=== PATIENT | male | born 1990 | race Caucasian/White ===

== ENCOUNTER 2018-09-01 05:16 | Emergency (ER) | payer OTHER ==
--- NOTE | 2018-09-01 05:58 | ED ---
Chest Pain HPI - General Chief Complaint: Chest Pain Stated Complaint: Chest Pain Time Seen by Provider: 09/01/18 05:28 Source: patient, family, RN notes reviewed, old records reviewed Mode of arrival: ambulatory Limitations: no limitations - History of Present Illness Initial Comments: This is a 28-year-old male the ER for evaluation. Patient has a for evaluation regarding some chest pain left-sided chest pain shortness of breath and a near syncopal event. Patient states his heart rate went into the 40s. Does have. Prior history of vasovagal syncope secondary to needle trauma. Also once with bad news. Patient states he felt very anxious. Shaking his limbs in his hands. Denies any medications. Take an aspirin. Again patient's complaining of chest pain currently. He states he did get diaphoretic during the event and fell using pass out. Aside from the shaking he is currently back to baseline MD Complaint: chest pain, other (near syncope) -: hour(s) (1) Onset: during rest Pain Location: left chest Severity: mild Severity scale (1-10): 2 Quality: tightness Consistency: constant Improves With: nothing Worsens With: nothing Anginal Symptoms: diaphoresis, dyspnea Other Symptoms: palpitations Treatments Prior to Arrival: none - Related Data Home Medications Medication Instructions Recorded Confirmed No Known Home Medications 09/01/18 09/01/18 Allergies Allergy/AdvReac Type Severity Reaction Status Date / Time No Known Allergies Allergy Verified 09/01/18 07:00 Review of Systems ROS Statement: Those systems with pertinent positive or pertinent negative responses have been documented in the HPI. ROS Other: All systems not noted in ROS Statement are negative. EKG Findings - EKG Comments: EKG Findings:: EKG shows sinus rhythm rate of 70, ME 136, QRS 02, QTc 446 Past Medical History Past Medical History: No Reported History History of Any Multi-Drug Resistant Organisms: None Reported Past Surgical History: Hernia Repair Past Psychological History: No Psychological Hx Reported Smoking Status: Never smoker Past Alcohol Use History: Occasional Past Drug Use History: None Reported General Exam Limitations: no limitations General appearance: alert, in no apparent distress Head exam: Present: atraumatic, normocephalic, normal inspection Eye exam: Present: normal appearance, PERRL, EOMI. Absent: scleral icterus, conjunctival injection, periorbital swelling ENT exam: Present: normal exam, mucous membranes moist Neck exam: Present: normal inspection. Absent: tenderness, meningismus, lymphadenopathy Respiratory exam: Present: normal lung sounds bilaterally. Absent: respiratory distress, wheezes, rales, rhonchi, stridor Cardiovascular Exam: Present: regular rate, normal rhythm, normal heart sounds. Absent: systolic murmur, diastolic murmur, rubs, gallop, clicks GI/Abdominal exam: Present: soft, normal bowel sounds. Absent: distended, tenderness, guarding, rebound, rigid Extremities exam: Present: normal inspection, full ROM, normal capillary refill. Absent: tenderness, pedal edema, joint swelling, calf tenderness Back exam: Present: normal inspection Neurological exam: Present: alert, oriented X3, CN II-XII intact Psychiatric exam: Present: normal affect, normal mood Skin exam: Present: warm, dry, intact, normal color. Absent: rash Course Vital Signs 09/01/18 09/01/18 09/01/18 05:21 06:08 06:55 Temperature 98.3 F 97.7 F Pulse Rate 78 65 65 Respiratory 20 18 20 Rate Blood Pressure 136/80 121/74 121/76 O2 Sat by Pulse 99 98 97 Oximetry - Reevaluation(s) Reevaluation #1: Patient is without syncopal event here in the ER, asymptomatic or chest pain or shortness of breath Chest Pain MDM - MDM 20 male the ER for evaluation. Patient is today for evaluation of near syncopal event occasional chest pain. Patient's heart monitor is normal blood fluids are normal troponin and EKG are negative. Patient does have history of near syncope. He is mildly anxious on exam with some shaking. Those symptoms have improved and patient can be discharged home Disposition Clinical Impression: Chest pain, Near syncope Disposition: HOME SELF-CARE Condition: Good Instructions (If sedation given, give patient instructions): Chest Pain (ED) Is patient prescribed a controlled substance at d/c from ED?: No Referrals: None,Stated [Primary Care Provider] - 1-2 days
[2018-09-01] MEDS: SODIUM CHLORIDE 0.9% 1,000 ML IV STA ×2 (06:07→06:08)
[2018-09-01 06:09] VITALS: PULSE 65
[2018-09-01 06:16] LABS: Basophils % (A) 0 %; Eosinophils # (A) 0.2 k/uL (0-0.7); Eosinophils % (A) 3 %; HCT 44.4 % (39.0-53.0); HGB 15.4 gm/dL (13.0-17.5); Lymphocytes # (A) 2.4 k/uL (1.0-4.8); Lymphocytes % (A) 38 %; MCH 31.6 pg (25.0-35.0); MCHC 34.8 g/dL (31.0-37.0); MCV 90.9 fL (80.0-100.0); Mean Platelet Volume 6.1; Monocytes # (A) 0.4 k/uL (0-1.0); Monocytes % (A) 6 %; Neutrophils # (A) 3.2 k/uL (1.3-7.7); Neutrophils % (A) 51 %; Platelet Count 206 k/uL (150-450); RBC 4.88 m/uL (4.30-5.90); RDW 12.4 % (11.5-15.5); WBC 6.3 k/uL (3.8-10.6)
[2018-09-01 06:26] LABS: ALT 39 U/L (21-72); AST 25 U/L (17-59); Albumin 4.7 g/dL (3.5-5.0); Alkaline Phosphatase 48 U/L (38-126); Anion Gap 10 mmol/L; Blood Urea Nitrogen 22 mg/dL (9-20); Calcium 9.4 mg/dL (8.4-10.2); Carbon Dioxide 28 mmol/L (22-30); Chloride 103 mmol/L (98-107); Glucose 131 mg/dL (74-99); Lipase 110 U/L (23-300); Magnesium 1.9 mg/dL (1.6-2.3); Sodium 141 mmol/L (137-145); Total Bilirubin 1.1 mg/dL (0.2-1.3); Total Protein 7.5 g/dL (6.3-8.2)
[2018-09-01 06:32] LABS: Partial Thromboplastin Time 24.4 sec (22.0-30.0); Prothrombin Time 10.6 sec (9.0-12.0)
[2018-09-01 06:48] LABS: D-Dimer <0.17 mg/L FEU (<0.60)
--- NOTE | 2018-09-01 06:54 | XR ---
EXAM: XR Chest, 2 Views CLINICAL HISTORY: ITS.REASON XR Reason: Chest Pain TECHNIQUE: Frontal and lateral views of the chest. COMPARISON: No relevant prior studies available. FINDINGS: Lungs: Unremarkable. No consolidation. Pleural space: Unremarkable. No pneumothorax. Heart: Unremarkable. No cardiomegaly. Mediastinum: Unremarkable. Bones/joints: Unremarkable. IMPRESSION: No acute cardiopulmonary findings.
[2018-09-01 06:58] VITALS: BP 121/76; RESP 20; TEMP 97.7
== END 2018-09-01 07:18 | disposition home or self-care (01) ==
LOC: EC 05:16
DX: R07.89 Other chest pain (principal); R55 Syncope and collapse; R06.02 Shortness of breath; R61 Generalized hyperhidrosis; R45.0 Nervousness
CPT/HCPCS: 36415; 71046; 80053; 83690; 83735; 83880; 84484; 85025; 85379; 85610; 85730; 93005; 96360; 99285

== ENCOUNTER → 2019-04-19 | Outpatient (CLI) | payer OTHER ==
--- NOTE | 2019-04-19 09:26 | FL ---
EXAMINATION TYPE: FL barium swallow DATE OF EXAM: 04/19/2019 CLINICAL HISTORY: Gastroesophageal reflux. TECHNIQUE: A double contrast esophagram is performed utilizing air and barium. A total of 1.34 baldo osorio of fluoroscopic time was utilized during procedure. 33 fluoroscopic images were saved during the examination. COMPARISON: None FINDINGS: The esophagus shows normal motility and emptying into the stomach. No evidence of hiatal h ernia or stricture noted. Mild degree gastroesophageal reflux was seen during real time performance o f this study in the right lateral and left lateral decubitus positions without Valsalva. IMPRESSION: Mild degree gastroesophageal reflux in the right lateral and left lateral decubitus posi tions without Valsalva. No hiatal hernia or stricture.
== END | disposition home or self-care (01) ==
LOC: RADUSWWP 07:49
PROVIDERS: ATTEND Family Medicine
DX: K21.9 Gastro-esophageal reflux disease without esophagitis (principal)
CPT/HCPCS: 74220

== ENCOUNTER → 2019-06-13 | Outpatient (CLI) | payer OTHER ==
--- NOTE | 2019-06-13 07:38 | US ---
EXAMINATION TYPE: US gallbladder DATE OF EXAM: 06/13/2019 COMPARISON: NONE CLINICAL HISTORY: R94.8 Abnormal serum levels. Patient is 6ft 9in tall EXAM MEASUREMENTS: Liver Length: 18.5 cm Gallbladder Wall: 0.2 cm CBD: 0.3 cm Right Kidney: 13.0 x 4.4 x 4.3 cm Pancreas: Tail obscured by overlying bowel gas. Visualized portions wnl Liver: wnl Gallbladder: Elongated in size measuring 8.9 cm. No cholelithiasis or biliary sludge. Evidence for sonographic Henao's sign: No CBD: wnl as visualized, distal portion obscured by bowel gas Right Kidney: No hydronephrosis. Cystic area visualized mid pole measuring 1.2 x 1.3 x 1.5 cm IMPRESSION: No cholelithiasis or sonographic evidence of acute cholecystitis.
== END | disposition home or self-care (01) ==
LOC: RADUSWWP 06:55
PROVIDERS: ATTEND Family Medicine
DX: R74.8 Abnormal levels of other serum enzymes (principal)
CPT/HCPCS: 76705

== ENCOUNTER → 2021-03-30 | Outpatient (CLI) | payer OTHER ==
--- NOTE | 2021-03-30 13:02 | US ---
EXAMINATION TYPE: US duplex aorta DATE OF EXAM: 03/30/2021 COMPARISON: NONE CLINICAL HISTORY: Z82.49 Family history of ischemic heart disease. No HTN. Patient states his father hx AAA. EXAM MEASUREMENTS: Abdominal Aorta: Proximal: 1.8 x 2.1 cm Mid: 1.6 x 1.7 cm Distal: 1.5 x 1.5 cm Bifurcation: Right- 1.0 x 0.9 cm Left- 1.1 x 0.9 cm No AAA visualized. IMPRESSION: 1. Normal screening abdominal aorta. No aneurysmal dilatation is evident by ultrasound.
== END | disposition home or self-care (01) ==
LOC: RADUSWWP 08:13
PROVIDERS: ATTEND Family Medicine
DX: Z09 Encounter for follow-up examination after completed treatment for conditions other than malignant neoplasm (principal); Z82.49 Family history of ischemic heart disease and other diseases of the circulatory system
CPT/HCPCS: 93979

== ENCOUNTER → 2022-02-01 | Outpatient (CLI) | payer OTHER ==
--- NOTE | 2022-02-01 17:15 | US ---
EXAMINATION TYPE: US scrotum with doppler. TECHNIQUE: Grayscale and color Doppler Duplex imaging performed of the scrotum. DATE OF EXAM: 02/01/2022 COMPARISON: NONE CLINICAL HISTORY: 32-year-old male N50.812 Left testicular pain. Left teste pain x 2 weeks. No injur y. No swelling. FINDINGS: EXAM MEASUREMENTS: TESTICLES: Right Testicle: 5.0 x 3.9 x 3.1 cm Left Testicle: 5.3 x 3.5 x 3.5 cm EPIDIDYMIS HEAD: Right Epididymis: 1.2 x 1.0 x 1.0 cm Left Epididymis: 1.0 x 1.2 x 0.6 cm Doppler performed to assess for testicular vascularity; good bilateral color flow and waveforms are s een. There is no evidence of testicular torsion. Presence of hydroceles: no Presence of varicoceles: no IMPRESSION: Symmetric size and appearance of the testicles. No sonographic evidence for testicular torsion or epi didymoorchitis. No hydrocele.
== END | disposition home or self-care (01) ==
LOC: RADUSWWP 12:16
PROVIDERS: ATTEND Family Medicine
DX: N50.812 Left testicular pain (principal)
CPT/HCPCS: 76870; 93975

== ENCOUNTER → 2022-10-22 | Outpatient (CLI) | payer OTHER ==
[2022-10-23 02:33] LABS: Bilirubin, Conjugated <0.20 mg/dL (0.20-0.40)
== END | disposition home or self-care (01) ==
LOC: LABWHC1 16:14
PROVIDERS: ATTEND Family Medicine
DX: E03.9 Hypothyroidism, unspecified (principal); E80.4 Gilbert syndrome
CPT/HCPCS: 36415; 82248; 84439; 84443

== ENCOUNTER → 2023-08-16 | Outpatient (CLI) | payer OTHER ==
[2023-08-16 18:41] LABS: T4, Free (Free Thyroxine) 1.33 ng/dL (0.80-1.80)
== END | disposition home or self-care (01) ==
LOC: LABWHC1 14:54
PROVIDERS: ATTEND Family Medicine
DX: E03.9 Hypothyroidism, unspecified (principal)
CPT/HCPCS: 36415; 84439; 84443

== ENCOUNTER → 2024-09-28 | Outpatient (CLI) | payer OTHER ==
[2024-09-28 19:08] LABS: T4, Free (Free Thyroxine) 1.33 ng/dL (0.80-1.80)
== END | disposition home or self-care (01) ==
LOC: LABWHC1 14:56
PROVIDERS: ATTEND Family Medicine
DX: E03.9 Hypothyroidism, unspecified (principal)
CPT/HCPCS: 36415; 84439; 84443